=== PATIENT | female | born 2000 | race Caucasian/White ===

== ENCOUNTER 2023-07-20 08:15 | Inpatient (IN) ==
[2023-07-20] MEDS ORDERED: Lidocaine 1% VIAL 10 MG/ML 30 ML VIAL INJ PRN (09:36)
[2023-07-20] MEDS ORDERED: Prochlorperazine 5 mg/ml 2 ml VIAL (10 mg) IV PRN (09:36)
[2023-07-20] MEDS ORDERED: Calcium Carb (TUMS) 500 mg CHEW TAB PO PRN (09:42)
[2023-07-20] MEDS: miSOPROStol 100 mcg TAB PO ONE ×2 (09:50→14:22)
[2023-07-20 10:19] LABS: ABS Eosinophils 0.3 10^3/uL (0.0-0.5); ABS Lymphocytes 1.6 10^3/uL (1.0-4.8); ABS Monocytes 0.8 10^3/uL (0.0-0.9); ABS Neutrophils 6.9 10^3/uL (1.5-7.6); Eosinophil % 2.8 %; Hemoglobin 12.3 g/dL (11.5-14.3); Lymphocyte % 16.6 %; Mean Corpuscular Hemoglobin 25.9 pg (27-33); Mean Corpuscular Hgb Conc 33.3 g/dL (31-36); Mean Corpuscular Volume 77.8 fL (80-97); Mean Platelet Volume 8.9 fL (7.5-11.2); Platelet Count 191 10^3/uL (150-450); Red Blood Count 4.75 10^6/uL (3.63-4.92); Red Cell Distribution Width 14.8 % (12-17); White Blood Count 9.6 10^3/uL (3.8-11.8)
[2023-07-20 10:37] LABS: Urine Benzodiazepine Screen None Detected (None Detect); Urine Opiates Screen None Detected (None Detect)
[2023-07-20] MEDS: Dinoprostone 10 MG VAG.SUPP VAGINAL ONE (21:05)
[2023-07-21] MEDS: Lactated Ringers 1000 ml BAG 1,000 ML IV ONE ×2 (01:40→07:50)
[2023-07-21] MEDS: Ondansetron 4 mg VIAL 2 MG/ML 2 ml VIAL IV PRN (03:07)
[2023-07-21] MEDS ORDERED: Lidocaine 1.5% EPI 1:200,000 30 ML SDV ONE (03:57)
[2023-07-21] MEDS: OBEPIDURAL (200 ML) 200 ML EPIDURAL SCH (04:49)
[2023-07-21] MEDS ORDERED: Lactated Ringers 1000 ml BAG 500 ML IV PRN ×2 (05:04)
[2023-07-21] MEDS ORDERED: Phenylephrine 40 mcg/mL 10mL (400mcg) SYRINGE IV PUSH PRN ×2 (05:04)
[2023-07-21] MEDS ORDERED: Sodium Citrate/Citric Acid LIQ 15 ML UDC PO PRN (05:04)
[2023-07-21 06:49] LABS: Urine Bacteria Absent /HPF (Absent); Urine Red Blood Cell 1+(3-5/hpf) /HPF (0-Trace); Urine Squamous Epithelial Cell Present /HPF (Absent); Urine White Blood Cell Absent /HPF (0-Trace)
[2023-07-21 07:01] LABS: Urine Appearance Clear; Urine Color Yellow
[2023-07-21 07:02] LABS: Urine Bilirubin 1+ (Small) (Negative); Urine Ketones 3+ (80mg/dL) (Negative)
[2023-07-21 07:04] LABS: Urine Blood 1+ (Small) (Negative); Urine Nitrite Negative (Negative); Urine Protein 2+ (100 mg/dL) (Negative); Urine Specific Gravity 1.025 (1.005-1.030); Urine Urobilinogen 0.2 (Negative) (Negative); Urine pH 6.5 (5.0-9.0)
[2023-07-21] MEDS: Buffered Lidocaine 1% SYRIN 1 ml INTRADERM ONE (07:48)
[2023-07-21] MEDS: OBEPIDURAL (200 ML) 200 ML EPIDURAL ONE (07:49)
[2023-07-21] MEDS: Lactated Ringers 1000 ml BAG 1,000 ML IV SCH ×3 (07:51→20:16)
[2023-07-21] MEDS: Oxytocin in LR 20,000 MILLI.UNIT/1,000 ML BAG IV SCH ×2 (08:10→12:38)
[2023-07-21] MEDS: Oxytocin in LR 20,000 MILLI.UNIT/1,000 ML BAG IV ONE (08:14)
[2023-07-21] MEDS ORDERED: Glycerin ADULT 2.4 gm SUPP PR PRN (09:41)
[2023-07-21] MEDS ORDERED: RHO D Immune Globulin (HUMAN) 300 MCG = 1,500 I.U. INJ IM PRN (09:41)
[2023-07-21] MEDS ORDERED: Measles, Mumps,Rubella VACC 0.5 ML/VIAL SUBCUT ONE (09:41)
[2023-07-21] MEDS ORDERED: Lactated Ringers 1000 ml BAG 1,000 ML IV SCH (10:00)
[2023-07-21] MEDS: Dibucaine 1% OINT 28.35 GM TUBE PR PRN (10:41)
[2023-07-21] MEDS: Witch Hazel PAD JAR TOPICAL PRN (10:41)
[2023-07-22 06:56] LABS: ABS Eosinophils 0.3 10^3/uL (0.0-0.5); ABS Lymphocytes 1.9 10^3/uL (1.0-4.8); ABS Monocytes 0.8 10^3/uL (0.0-0.9); ABS Neutrophils 8.6 10^3/uL (1.5-7.6); Eosinophil % 2.3 %; Hematocrit 27.2 % (35-45); Lymphocyte % 16.5 %; Mean Corpuscular Hgb Conc 33.2 g/dL (31-36); Mean Corpuscular Volume 78.3 fL (80-97); Mean Platelet Volume 8.3 fL (7.5-11.2); Platelet Count 140 10^3/uL (150-450); Red Blood Count 3.47 10^6/uL (3.63-4.92); White Blood Count 11.6 10^3/uL (3.8-11.8)
[2023-07-22 11:48] VITALS: BP 108/59
[2023-07-22] MEDS: Measles, Mumps,Rubella VACC 0.5 ML/VIAL SUBCUT ONE (18:40)
== END 2023-07-22 19:46 | disposition home or self-care (01) | DRG 560 ==
LOC: MCHOBOUT 08:15 → MCHOB 09:28
PROVIDERS: ADMIT Registered Nurse; ATTEND Midwife